=== PATIENT | female | born 1980 | race African-American/Black ===

== ENCOUNTER 2019-04-20 18:45 | Emergency (ER) | payer OTHER ==
[~2019-04-20] VITALS: Ht 170.2 cm; Wt 127.5 kg
[2019-04-20 19:06] VITALS: BP 142/91
--- NOTE | 2019-04-20 19:14 | NUR ---
PATIENT AMBULATED TO BED 2
--- NOTE | 2019-04-20 19:15 | NUR ---
38/F PRESENTED TO ED C/O REFERRED FROM CLINIC FOR R EYE INCREASING VISION LOSS & PAIN X TODAY. PAIN 11/12. MED HX:DENIES
[2019-04-20] MEDS ORDERED: FLUORESCEIN OPTH STRIP 0.6 MG OP ONE (19:40)
--- NOTE | 2019-04-20 19:49 | NUR ---
ORAL ZUNIGA AT BEDSIDE
[2019-04-20 20:20] VITALS: BP 148/76
--- NOTE | 2019-04-20 20:20 | NUR ---
Patient discharged with v/s stable. Written and verbal after care instructions given and explained. Patient alert, oriented and verbalized understanding of instructions. Ambulatory with steady gait. All questions addressed prior to discharge. ID band removed. Patient advised to follow up with PMD. Rx of KETORALAC TROMETHAMINE OPHTHALMIC SOLUTION AND ERYTHROYMICIN OPTHALMIC SOLUTION given. Patient educated on indication of medication including possible reaction and side effects. Opportunity to ask questions provided and answered. INSTRUCTED PT TO TAKE MEDICATIONS 15 MIN APART FROM EACHOTHER
== END 2019-04-20 20:20 | disposition home or self-care (01) ==
LOC: MED 18:45
DX: H10.89 Other conjunctivitis (principal); B96.89 Other specified bacterial agents as the cause of diseases classified elsewhere
CPT/HCPCS: 99283